=== PATIENT | female | born 1975 | race Caucasian/White ===

== ENCOUNTER → 2017-05-15 | Outpatient (CLI) | payer BC ==
--- NOTE | 2017-05-15 09:54 | Diagnostic Imaging Report ---
PROCEDURE: US THYROID COMPARISON: None. INDICATIONS:Goiter, Hair Loss, Faitgue TECHNIQUE: Transverse and longitudinal robert-scale sonographic images of the thyroid were obtained and supplemented with color doppler. FINDINGS: Right thyroid lobe: 5 x 1.4 x 1.8 cm. Heterogeneous echotexture. Ovoid anechoic structure compatible with a colloid cyst in the inferolateral aspect measuring 0.5 x 0.4 x 0.4 cm.. Left thyroid lobe: 4.2 x 1.4 x 1.4 cm. Heterogeneous echotexture. In the lower pole, there is a cluster of ovoid anechoic structures measuring 2 x 0.7 x 1.1 cm in aggregate dimension. Isthmus: 0.4 cm in thickness. 2 hypoechoic isthmic nodules are identified, the larger of which measures 0.6 x 0.3 x 0.5 cm. It is wider than tall with a smooth margin and no microcalcifications. 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 6 mm isthmic nodule does not meet sonographic criteria for fine needle aspiration. Followup thyroid ultrasound in one year is suggested to assess for stability. Dictated by: Dhiraj Valladares M.D. on 05/15/2017 at 10:02 Electronically approved by: Dhiraj Valladares M.D. on 05/15/2017 at 10:02
== END ==
LOC: US 08:58
PROVIDERS: ATTEND Family Medicine
DX: E04.9 Nontoxic goiter, unspecified (principal); R53.82 Chronic fatigue, unspecified; L65.9 Nonscarring hair loss, unspecified
CPT/HCPCS: 76536